=== PATIENT | female | born 1955 | race Caucasian/White ===

== ENCOUNTER 2021-06-21 08:22 | Day surgery (SDC) | payer MEDICARE, BC ==
--- NOTE | 2021-06-20 10:17 | PCM.SN.2 ---
- Free Text/Narrative Note: Left selective femoral nerve block at the adductor canal for post-procedure pain control under US guidance requested by Dr. Munguia. Time Out: 1140 Start: 1143 End: 1155 Chart reviewed. Consent signed. Questions answered. Appropriate monitors applied. Time out performed. Left mid-shaft femur identified with ultrasound, scanning medially of femur, the femoral artery in the adductor canal visualized, and the femoral nerve located laterally to the artery. The skin was prepped lateral to the ultrasound probe with chlorahexadine times two. The 21ga 4 insulated block needle was inserted under direct ultrasound guidance into the adductor canal. 20mL of 0.5% ropivacaine with 1:200,000 epinephrine was injected circumferentially around the nerve with intermittent negative aspiration noted. (Faint positive transient heme noted times once.) Patient tolerated the procedure well. Sterile technique noted along with sterile gloves, mask, and sterile probe cover. See picture on progress note and vital signs on nurses notes. Block completed in PACU. Sarah Jackson CRNA Time Documentation
--- NOTE | 2021-06-21 06:24 | PCM.PREANE ---
Preanesthetic Assessment - Procedure Proposed Procedure: Left Total Knee Arthroplasty and Right Knee Steroid Injection - Anesthesia/Transfusion/Family Hx Anesthesia History: Prior Anesthesia Without Reaction Family History of Anesthesia Reaction: No Transfusion History: No Prior Transfusion(s) Intubation History: Unknown - Review of Systems General: No Symptoms Pulmonary: No Symptoms (Asthma-last used inhaler 2 days ago/2 puffs given in preoperative area./2009 ankle surgery with pulmonary emboli occuring after surgery few months.), Cough (occasional) Cardiovascular: No Symptoms, Edema (left ankle more swollen than right/left ankle joint replaced.) Gastrointestinal: No Symptoms (GERD-diet dependent/controlled) Neurological: No Symptoms Other: Reports: None, Easy Bruising, Sinus Problem (seasonal allergies) - Physical Assessment NPO Status Date: 06/20/21 NPO Status Time: 18:00 Vital Signs: HR: 89 Sat: 95% Resp: 16 Temp: 97.7 B/P: 138/75 Height: 1.6 m Weight: 82.554 kg ASA Class: 2 Mental Status: Alert & Oriented x3 Airway Class: Mallampati = 2 Dentition: Reports: Normal Dentition, Caries Thyro-Mental Finger Breadths: 3 Mouth Opening Finger Breadths: 3 ROM/Head Extension: Full Lungs: Clear to Auscultation, Normal Respiratory Effort Cardiovascular: Regular Rate, Regular Rhythm, No Murmurs - Lab Values: All labs reviewed and noted and within acceptable ranges to proceed with scheduled procedure. - Imaging/EKG Impressions: EKG: SR rate= 80 CXR: negative - Allergies Allergies/Adverse Reactions: Allergies Allergy/AdvReac Type Severity Reaction Status Date / Time adhesive Allergy Rash Verified 06/20/21 13:56 Cephalosporins Allergy Rash Verified 06/20/21 13:56 levofloxacin [From Levaquin] Allergy Rash Verified 06/20/21 13:56 Penicillins Allergy Anaphylactic Verified 06/20/21 16:43 Shock Sulfa (Sulfonamide Allergy Rash Verified 06/20/21 13:56 Antibiotics) - Anesthesia Plan Pre-Op Medication Ordered: Other (Preoperative oral medications: lyrica,tylenol,oxycontin: 0842) - Acknowledgements Anesthesia Type Planned: Spinal (Left Adductor Canal Block under US guidance for post operative pain control requested by Dr. Munguia.) Pt an Appropriate Candidate for the Planned Anesthesia: Yes Alternatives and Risks of Anesthesia Discussed w Pt/Guardian: Yes Pt/Guardian Understands and Agrees with Anesthesia Plan: Yes PreAnesthesia Questionnaire HEENT History: Reports: Allergic Rhinitis, Sinusitis Cardiovascular History: Reports: None Respiratory History: Reports: None Gastrointestinal History: Reports: Diverticulosis, GERD Genitourinary History: Reports: Other (See Below) Other Genitourinary History: renal cyst removal [employer] History: Reports: Other (See Below) Other OB/BYN History: hot flashes Musculoskeletal History: Reports: Other (See Below) Other Musculoskeletal History: right nerve impingment Neurological History: Reports: None Psychiatric History: Reports: Other (See Below) Other Psychiatric History: insomnia Endocrine/Metabolic History: Reports: None Hematologic History: Reports: None Immunologic History: Reports: None Oncologic (Cancer) History: Reports: None Dermatologic History: Reports: None - Infectious Disease History Infectious Disease History: Reports: None - Past Surgical History HEENT Surgical History: Reports: Naso-Sinus Surgery, Tonsillectomy Cardiovascular Surgical History: Reports: None Respiratory Surgical History: Reports: None GI Surgical History: Reports: Cholecystectomy, Colonoscopy, EGD Female Surgical History: Reports: Hysterectomy Male Surgical History: Reports: None Endocrine Surgical History: Reports: None Neurological Surgical History: Reports: None Musculoskeletal Surgical History: Reports: Other (See Below) Other Musculoskeletal Surgeries/Procedures:: left ankle impingement Oncologic Surgical History: Reports: None Dermatological Surgical History: Reports: None - SUBSTANCE USE Tobacco Use Status *Q: Never Tobacco User Recreational Drug Use History: No - HOME MEDS Home Medications: Home Meds Albuterol Sulfate [Albuterol Sulfate HFA] 1 - 2 puff INH Q4H PRN 06/20/21 [History] Apixaban [Eliquis] 2.5 mg PO BID #84 tablet 06/20/21 [Rx] Cholecalciferol (Vitamin D3) [Vitamin D3] 5,000 unit PO DAILY 06/20/21 [History] Diclofenac Sodium [Voltaren] 75 mg PO BID PRN 06/20/21 [History] Fexofenadine [Mervat] 180 mg PO DAILY 06/20/21 [History] Gabapentin [Neurontin] 200 mg PO BEDTIME 06/20/21 [History] Montelukast [Singulair] 10 mg PO DAILY PRN 06/20/21 [History] Omeprazole Magnesium [Prilosec Otc] 20 mg PO DAILY 06/20/21 [History] Venlafaxine [Effexor] 75 mg PO DAILY 06/20/21 [History] Zolpidem [Ambien] 10 mg PO BEDTIME 06/20/21 [History] oxyCODONE 5 - 10 mg PO Q4H PRN #40 tab 06/20/21 [Rx] - CURRENT (IN HOUSE) MEDS Current Meds: Current Medications Acetaminophen (Acetaminophen 325 Mg Tab) 975 mg PO ONETIME ABDULKADIR Stop: 06/21/21 14:00 Morphine Sulfate 8 mg/Epinephrine HCl 0.3 mg/Cefuroxime Sodium 750 mg/Ketorolac Tromethamine 30 mg/Sodium Chloride 7.9 ml 0 mg .XX ASDIRECTED PRN PRN Reason: Pain Stop: 06/21/21 16:00 Lactated Ringer's (Ringers, Lactated) 1,000 mls @ 125 mls/hr IV ASDIRECTED ABDULKADIR Stop: 06/21/21 23:00 Vancomycin HCl 1 gm/Vancomycin HCl 500 mg/ Sodium Chloride 500 mls @ 333 mls/hr IV ONETIME ONE Stop: 06/21/21 10:30 Lidocaine/Sodium Bicarbonate (Lidocaine 1%/Sod Bicarbonate In Ns 8.4% 1 Ml Syringe) 0.25 ml IDERM ONETIME PRN PRN Reason: Prior to IV Start Stop: 06/21/21 18:01 Oxycodone HCl (Oxycodone Er 10 Mg Tab.Er) 10 mg PO ONETIME ABDULKADIR Stop: 06/21/21 14:00 Pregabalin (Pregabalin 25 Mg Cap) 50 mg PO ONETIME ABDULKADIR Stop: 06/21/21 14:00 Sodium Chloride (Sodium Chloride 0.9% 10 Ml Syringe) 10 ml FLUSH ASDIRECTED PRN PRN Reason: Keep Vein Open Stop: 06/21/21 18:00 Discontinued Medications Epinephrine HCl (Epinephrine 1 Mg/Ml Sdv) Confirm Administered Dose 1 mg .ROUTE .STK-MED ONE Stop: 06/21/21 05:52 Ropivacaine (Ropivacaine 0.5% 5 Mg/Ml 30 Ml Sdv) Confirm Administered Dose 30 ml .ROUTE .STK-MED ONE Stop: 06/21/21 05:52
[~2021-06-21 08:22] MED LIST: Acetaminophen 325 MG Tab PO SCH; EPINEPHrine 1 MG/ML SDV ONE; Lactated Ringers 1,000 ML IV SCH; Lidocaine 1%/Sod Bicarbonate in NS 8.4% 1 ML Syringe IDERM PRN; Morphine 8 MG, EPINEPHrine 0.3 MG, Cefuroxime 750 MG, Ketorolac 30 MG, Sodium Chloride ... PRN; Pregabalin 25 MG Cap PO SCH; Ropivacaine 0.5% 5 MG/ML 30 ML SDV ONE; Sodium Chloride 0.9% 10 ML Syringe FLUSH PRN; oxyCODONE ER 10 MG TAB.ER PO SCH
[2021-06-21] MEDS ORDERED: Propofol 200 MG/20 ML SDV ONE (08:45)
[2021-06-21] MEDS ORDERED: Ondansetron 4 MG/2 ML SDV ONE (08:45)
[2021-06-21] MEDS ORDERED: Midazolam 1 MG/ML 2 ML SDV ONE (08:45)
[2021-06-21] MEDS ORDERED: Lactated Ringers 1,000 ML ONE (08:45)
[2021-06-21] MEDS ORDERED: fentaNYL 100 MCG/2 ML SDV ONE (08:45)
[2021-06-21] MEDS ORDERED: Ketamine 500 mg/10 ML MDV ONE (08:45)
[2021-06-21] MEDS ORDERED: ceFAZolin 1 GM Vial ONE (08:45)
[2021-06-21] MEDS ORDERED: Vancomycin 1 GM, Vancomycin 500 MG in Sodium Chloride 0.9% 500 ML IV ONE (09:00)
[2021-06-21] MEDS ORDERED: Vancomycin 1 GM SDV ONE (09:07)
[2021-06-21] MEDS ORDERED: Ondansetron 4 MG/2 ML SDV IVPUSH PRN (09:46)
[2021-06-21] MEDS ORDERED: HYDROmorphone 0.5 MG/0.5 ML Syringe IVPUSH PRN (09:46)
[2021-06-21] MEDS ORDERED: Albuterol 0.083% 2.5 MG/3 ML Neb Soln NEB PRN (09:46)
[2021-06-21] MEDS ORDERED: fentaNYL 100 MCG/2 ML SDV IVPUSH PRN (09:46)
[2021-06-21] MEDS ORDERED: diphenhydrAMINE 50 MG/ML SDV IVPUSH PRN (09:46)
[2021-06-21] MEDS ORDERED: ePHEDrine 50 MG/ML SDV IVPUSH PRN (09:46)
[2021-06-21] MEDS: Triamcinolone Acetonide 40 MG/ML 1 ML SDV ONE ×2 (10:17→11:17)
[2021-06-21] MEDS: Bupivacaine 0.25% 10 ML SDV ONE ×2 (10:17→11:17)
[2021-06-21] MEDS ORDERED: ePHEDrine 50 MG/ML SDV ONE (10:40)
[2021-06-21] MEDS ORDERED: Ketorolac 30 MG/ML SDV ONE (10:47)
--- NOTE | 2021-06-21 12:21 | PCM.POSTAN ---
POST ANESTHESIA ASSESSMENT - MENTAL STATUS Mental Status: Alert - VITAL SIGNS Vital Signs: Last Vital Signs Temp 97.8 06/21/21 1125 Pulse 101 06/21/21 1125 Resp 16 06/21/21 1125 BP 96/73 06/21/21 11:25 Pulse Ox 96% 06/21/21 1125 - RESPIRATORY Respiratory Status: Respiratory Rate WNL, Airway Patent, O2 Saturation Stable - CARDIOVASCULAR CV Status: Pulse Rate WNL, Blood Pressure Stable - GASTROINTESTINAL GI Status: No Symptoms - POST OP HYDRATION Hydration Status: Adequate & Stable
[2021-06-21] MEDS ORDERED: oxyCODONE 5 MG Tab PO PRN (13:13)
--- NOTE | 2021-06-21 13:36 | CR ---
Left knee: AP and crosstable lateral views of the left knee were obtained. Comparison: Prior left knee CT study of 06/05/21. Knee prosthesis and patella prosthesis are noted. Components are aligned. Soft tissue air is noted. Underlying bony structures are intact. Impression: 1. Satisfactory postoperative radiographic appearance of recently placed left knee prostheses. Diagnostic code #2
--- NOTE | 2021-06-21 14:52 | PCM48HPAN ---
Post Anesthesia Note - EVALUATION WITHIN 48HRS OF ANESTHETIC Vital Signs in Normal Range: Yes Patient Participated in Evaluation: Yes Respiratory Function Stable: Yes Airway Patent: Yes Cardiovascular Function Stable: Yes Hydration Status Stable: Yes Pain Control Satisfactory: Yes Nausea and Vomiting Control Satisfactory: Yes Mental Status Recovered: Yes Vital Signs: Last Vital Signs Temp 97.5 F 06/21/21 13:40 Pulse 69 06/21/21 14:45 Resp 19 06/21/21 14:45 BP 113/89 06/21/21 14:45 Pulse Ox 98 06/21/21 14:45
--- NOTE | 2021-07-08 14:08 | PCM.OPNOTE ---
- General Post-Op/Procedure Note Date of Surgery/Procedure: 06/21/21 Operative Procedure(s): left total knee arthroplasty with [employer] robot[employer] and right knee corticosteroid injection Pre Op Diagnosis: bilateral knee osteoarthrosis Post-Op Diagnosis: Same Anesthesia Technique: Local, MAC, Spinal Primary Surgeon: Asif Munguia Anesthesia Provider: Sarah Jackson Printing Press Operator: Dalia Moeller Printing Press Operator: Dina Gamble EBL in mLs: 150 Complications: None Condition: Good Free Text/Narrative:: 2 femur 3 tibia 9mm 29x9
--- NOTE | 2021-07-08 14:56 | OR ---
DATE OF OPERATION: 06/21/2021 SURGEON: Asif Munguia MD OPERATION PERFORMED: Left total knee arthroplasty with [employer] robot[employer] and right knee corticosteroid injection. PREOPERATIVE DIAGNOSIS: Bilateral knee osteoarthrosis. POSTOPERATIVE DIAGNOSIS: Bilateral knee osteoarthrosis. ANESTHESIA: Technique: Local MAC with spinal. ANESTHESIA PROVIDER: Sarah Jackson CRNA. ASSISTANTS: Dalia Moeller PA-C, and Dina Gamble LPN. ESTIMATED BLOOD LOSS: 150 mL. COMPLICATIONS: None. CONDITION: Stable. IMPLANTS: 1. Jorge size 2 femur press-fit CR femur. 2. Faison size 3 press-fit tibial baseplate. 3. Faison size 3, 9 mm CS polyethylene insert. 4. Jorge size 29 x 9 mm press-fit asymmetric patella. DESCRIPTION OF PROCEDURE: The patient was identified in the preoperative holding area. Proper site was marked and identified by the surgeon. The patient was taken back to the operative theater where after adequate anesthesia, a nonsterile tourniquet was applied to the left lower extremity. Left lower extremity was then sterilely prepped and draped in the usual sterile fashion. OR time-out was performed. Patient received 2 g IV Ancef. Leg nunez was then applied. Left lower extremity was exsanguinated. Tourniquet was insufflated to 250 mmHg. Standard anterior incision was made and medial parapatellar arthrotomy was created. Deep fibers of the MCL were raised and anterior fat pad was resected. Attention was turned to the patella. Patella measured 20 and was resected to a 13 for a 29 x 9 mm patella. Drill holes were then drilled. Two 4.0 Schanz pins were then placed intra-incisionally in the femur, two more were placed on the tibia 3 fingerbreadths below the tibial tubercle. [employer] robotic arrays were placed on these, checkpoints were placed on the femur and the tibia. Hip center rotation was obtained. Medial and lateral malleoli were marked. Checkpoints were then marked. 40 points were then obtained off the femur and the tibia for the Jorge [employer] robotic plan. The patient's knee was brought into full extension as well as 90 degrees of flexion. Varus-valgus stresses were applied. A Jorge [employer] robotic plan was then undertaken for this patient for symmetric flexion and extension gaps. Straight saw blade was brought in [employer] robotic arm and the tibial cut, the anterior femoral cut, anterior chamfer cuts and posterior femoral cuts were completed. Saw blade was then switched and the distal femoral cut and posterior chamfer cuts were completed. All bony fragments were removed. Medial and lateral menisci were resected. Posterior osteophytes were removed. The size 3 trial baseplate was then placed and the size 2 trial femur was placed, 9 mm trial spacer was placed. The patient had full extension and flexion. There was no varus-valgus instability and no lift- off on the femur. At this time, femoral drill holes were drilled. The tibia was stamped and drilled in proper rotation. All trial implants were removed. The size 3 tibial baseplate was then impacted in place. Size 2 femur was [address] place. A 9 mm CS polyethylene insert was impacted in place, 29 x 9 mm patella was press-fit into place. Tourniquet was deflated. Bleeders were cauterized. 1 L pulse lavage irrigation with Ancef was irrigated through the knee along with 400 mL IrriSept irrigation. Periarticular injection was completed. Topical tranexamic acid and vancomycin powder were applied. A #2 barbed suture was used for closure of the medial parapatellar arthrotomy, 2-0 Vicryl and Stratafix were used for subcutaneous closure, and Prineo was used for skin closure. Please note, all [employer] robotic checkpoints and arrays were removed before closure. A sterile soft dressing was applied. After this, under sterile technique, 2 mL of 40 mg Kenalog and 4 mL of 0.25% Marcaine were injected to the right knee. The patient tolerated all procedures well and sent to PACU in stable condition. MMODAL /[id number]
== END 2021-06-21 14:55 | disposition home or self-care (01) ==
LOC: JD.SDS 08:22
PROVIDERS: ATTEND Orthopaedic Surgery
DX: M17.0 Bilateral primary osteoarthritis of knee (principal); K21.9 Gastro-esophageal reflux disease without esophagitis; G47.00 Insomnia, unspecified; G89.29 Other chronic pain; J45.909 Unspecified asthma, uncomplicated; G89.18 Other acute postprocedural pain; Z20.822 Contact with and (suspected) exposure to COVID-19; Z98.890 Other specified postprocedural states; Z88.0 Allergy status to penicillin; Z90.49 Acquired absence of other specified parts of digestive tract; Z88.2 Allergy status to sulfonamides; Z88.8 Allergy status to other drugs, medicaments and biological substances; Z79.899 Other long term (current) drug therapy; Z91.040 Latex allergy status
CPT/HCPCS: 20610; 27447; 73560; 97110; 97116; 97161; A9270; C1713; C1776; J0171; J0690; J0697; J1885; J2250; J2270; J2370; J2405; J2704; J2795; J3010; J3301; J3370; J3490; J7120; 01402; 64450